=== PATIENT | female | born 1935 | race Two or more races ===

== ENCOUNTER 2016-09-01 20:51 | Emergency (ER) | payer OTHER, MEDICAID ==
--- NOTE | 2016-09-01 23:00 | EDPHY ---
H & P Time Seen by Provider: 09/01/16 21:16 HPI/ROS: CHIEF COMPLAINT: Right foot pain HISTORY OF PRESENT ILLNESS: 81-year-old female presents emergency department complaining of right foot pain x2 weeks. Patient reports the bottom of her right foot hurts with palpation and ambulation and weight-bearing. Patient denies stepping on anything. She denies history of diabetes. No numbness or tingling in her foot. No fevers or chills. Patient was seen at her primary care doctor's office yesterday and was told this was a callus. Patient would like 2nd opinion. Smoking Status: Never smoked Physical Exam: GEN: Awake, alert, oriented, no acute distress RESP: nl resp effort MSK: Normal range of motion of right foot, 2+ pedal pulses, sensation intact to light touch SKIN: Plantar aspect of right foot on pad of foot just proximal to MTP joint with 1 cm x 1 cm callus with black center, no surrounding erythema, no drainage , no fluctuance or induration. Tender to palpation Constitutional: Initial Vital Signs Temperature (C) 36.5 C 09/01/16 20:53 Heart Rate 72 09/01/16 20:53 Respiratory Rate 18 09/01/16 20:53 Blood Pressure 163/82 H 09/01/16 20:53 O2 Sat (%) 93 09/01/16 20:53 O2 Delivery Mode Room Air Allergies/Adverse Reactions: morphine [Morphine] Allergy (Severe, Verified 05/09/14 23:23) Anaphylaxis Home Medications: Medication Instructions Recorded Alendronate Sodium [Fosamax 70 MG 70 mg PO AVENDAÑO@0700 06/27/12 (*)] Citalopram [celeXA 20 MG (RX)] 20 mg PO DAILY 06/27/12 Tolterodine Tartrate [Detrol LA 2 mg PO DAILY 06/27/12 2MG (*)] risperiDONE [Risperdal 0.25mg (*)] 0.5 mg PO BID 06/27/12 Atorvastatin Calcium [Lipitor 80 80 mg PO DAILY 02/03/13 mg] Lidocaine 5% [Lidoderm 5% Patch 1 ea TD DAILY 02/03/13 (*)] Metoprolol Succinate Xr [Toprol Xl 12.5 mg PO BID 02/03/13 25 mg (*)] Ondansetron Odt [Zofran Odt 4 mg 4 mg PO Q8 PRN 02/03/13 (*)] Pantoprazole Sodium [Protonix 40mg 40 mg PO DAILY 02/03/13 (*)] Loratadine [Claritin 10 mg] 10 mg PO DAILY 05/11/13 Metaxalone [Skelaxin 800 mg (*)] 800 mg PO TID PRN 05/11/13 Nitroglycerin [Nitrostat] 0.3 mg SL PRN PRN 05/11/13 Hydrocodone/APAP 5/325 [[place] 1 - 2 tab PO Q6 PRN 05/09/14 5/325 (*)] Aspirin [Aspirin 325 mg (OTC)] 325 mg PO DAILY #30 tab 06/07/14 MDM/Departure - MDM Imaging Results: Imaging Impressions Foot X-Ray 09/01/16 22:26 Impression: Negative for acute osseous abnormality or radiopaque foreign body. Imaging: I viewed and interpreted images myself ED Course/Re-evaluation: X-ray obtained showing no foreign body. Patient has a likely pannus work. She has been given a postop shoe for heel weight-bearing. Patient has been given a rubber process hand to follow up with. She is given return precautions for any new symptoms or concerns. - Depart Disposition: Home, Routine, Self-Care Clinical Impression: Plantar wart, right foot Condition: Good Instructions: Plantar Wart (ED) Additional Instructions: Follow up with the rubber process hand. Wear post op shoe and walk on heel as needed for pain. Call Sunday morning to schedule this appointment. Referrals: Jazzmine Patiño DPM [Doctor of Podiatric Medicine] - As per Instructions (rubber process hand sap solutions architect ) Print Language: Turkish
[2016-09-01 23:31] VITALS: BP 178/87; PULSE 75; RESP 20; TEMP 97.5; O2SAT 94
== END 2016-09-01 23:31 | disposition home or self-care (01) ==
DX: B07.0 Plantar wart (principal); Z79.82 Long term (current) use of aspirin
CPT/HCPCS: 73620; L3260

== ENCOUNTER → 2016-09-05 | Outpatient (CLI) | payer OTHER, MEDICAID | LOC: BMCIMAGING 09:35 | PROVIDERS: ATTEND Podiatrist Foot & Ankle Surgery | DX: M20.11 Hallux valgus (acquired), right foot (principal); M19.071 Primary osteoarthritis, right ankle and foot ==

== ENCOUNTER → 2016-12-01 | Outpatient (CLI) | payer OTHER, MEDICAID | LOC: BHFA 09:15 | PROVIDERS: ATTEND Internal Medicine Cardiovascular Disease | DX: I35.1 Nonrheumatic aortic (valve) insufficiency (principal); I10 Essential (primary) hypertension; I63.9 Cerebral infarction, unspecified; E78.5 Hyperlipidemia, unspecified; Z95.0 Presence of cardiac pacemaker ==

== ENCOUNTER 2016-12-08 17:05 | Emergency (ER) | payer OTHER, MEDICAID ==
[2016-12-08 17:15] VITALS: BP 170/89; PULSE 76; RESP 16; TEMP 98.4; O2SAT 93
--- NOTE | 2016-12-08 17:20 | CPEKG ---
Heart Rate: 67 RR Interval: 896 P-R Interval: 176 QRSD Interval: 108 QT Interval: 432 QTC Interval: 456 P Quinn: -44 QRS Quinn: -14 T Wave Quinn: 95 EKG Severity - ABNORMAL ECG - EKG Impression: ATRIAL-PACED COMPLEXES EKG Impression: INCOMPLETE RIGHT BUNDLE BRANCH BLOCK EKG Impression: CONSIDER ANTERIOR INFARCT Electronically Signed By: Nata Heredia 08-Dec-2016 23:17:36
--- NOTE | 2016-12-08 17:21 | EDPHY ---
H & P Stated Complaint: abd pain mid epigastric pain - Personal History Current Tetanus/Diphtheria Vaccine: Yes Current Tetanus Diphtheria and Acellular Pertussis (TDAP): Yes Tetanus Vaccine Date: 2010 - Medical/Surgical History Hx Asthma: No Hx Chronic Respiratory Disease: No Hx Diabetes: No Hx Cardiac Disease: Yes Hx Renal Disease: No Hx Cirrhosis: No Hx Alcoholism: No Hx HIV/AIDS: No Hx Splenectomy or Spleen Trauma: No Other PMH: medical- Pacemaker, HTN, CVA, pylonephritis, hyperlipidemia, [place], GERD, depression, BTKAs, L TSA, lap damien. surgical- B knee replacement, damien , R shoulder - Social History Smoking Status: Never smoked Time Seen by Provider: 12/08/16 17:08 HPI/ROS: CHIEF COMPLAINT: Epigastric pain HISTORY OF PRESENT ILLNESS: 81-year-old female medical history significant for chronic vertigo, cholecystectomy, sick sinus syndrome, pacemaker, arrives by ambulance with family member complaining of nonradiating epigastric pain, nausea started at 2:30 p.m., shortly after ingesting oral opiate as she had right bunionectomy earlier today. She was given fentanyl via EMS and notes improvement in symptoms. She denies: Vomiting, headache, chest pain, dyspnea, recent illness. PRIMARY CARE PROVIDER: the [facility] REVIEW OF SYSTEMS: A ten point review of systems was performed and is negative with the exception of the items mentioned in the HPI PAST MEDICAL & SURGICAL HISTORY: Cholecystectomy. Fatty liver. Lacunar infarct. Sick sinus syndrome. Pacemaker. Hyperlipidemia. Chronic vertigo SOCIAL HISTORY: nonsmoker. No drug use. No alcohol use. PHYSICAL EXAM (Prior to examination, patient consented to physical exam, hands were washed and my usual and customary physical exam procedures followed) 1) GENERAL: Well-developed, well-nourished, alert and oriented. Appears anxious. 2) HEAD: Normocephalic, atraumatic 3) HEENT: Pupils equal, round, reactive to light bilaterally. Sclera anicteric. 4) NECK: Full range of motion, no meningeal signs. 5) LUNGS: Clear auscultation bilaterally, no wheezes, no rhonchi, no retractions. 6) HEART: Regular rate and rhythm, no murmur, no heave, no gallop. 7) ABDOMEN: No guarding, tender to palpation epigastrium with no palpable or pulsatile mass, negative McBurney's, negative Vicente's, negative Rovsing's, negative peritoneal sign, negative Vicente's 8) MUSCULOSKELETAL: bilateral lower extremities have normal coloration, no mottling, symmetrical pulses. Moving all extremities, no focal areas of tenderness, no obvious trauma. No peripheral edema or discoloration. 9) BACK: No CVA tenderness, no midline vertebral tenderness, no fluctuance, no step-off, no obvious trauma, no visual or palpable abnormality. 10) SKIN: No rash, no petechiae. 11) Psychiatric: Patient is oriented X 3, there is no agitation. DIFFERENTIAL DIAGNOSIS: In no particular order, including but not limited to biliary colic, cholecystitis, peptic ulcer disease, pancreatitis, and gastroenteritis. This is a partial list of diagnoses considered. These considerations are based on history, physical exam, past history and reassessment. (Martin Peñaloza) Constitutional: Initial Vital Signs Temperature (C) 36.9 C 12/08/16 17:13 Heart Rate 76 12/08/16 17:13 Respiratory Rate 16 12/08/16 17:13 Blood Pressure 170/89 H 12/08/16 17:13 O2 Sat (%) 93 12/08/16 17:13 O2 Delivery Mode Nasal Cannula Allergies/Adverse Reactions: morphine [Morphine] Allergy (Severe, Verified 05/09/14 23:23) Anaphylaxis Home Medications: Medication Instructions Recorded Alendronate Sodium [Fosamax 70 MG 70 mg PO AVENDAÑO@0700 06/27/12 (*)] Citalopram [celeXA 20 MG (RX)] 20 mg PO DAILY 06/27/12 Tolterodine Tartrate [Detrol LA 2 mg PO DAILY 06/27/12 2MG (*)] risperiDONE [Risperdal 0.25mg (*)] 0.5 mg PO BID 06/27/12 Atorvastatin Calcium [Lipitor 80 80 mg PO DAILY 02/03/13 mg] Lidocaine 5% [Lidoderm 5% Patch 1 ea TD DAILY 02/03/13 (*)] Metoprolol Succinate Xr [Toprol Xl 12.5 mg PO BID 02/03/13 25 mg (*)] Ondansetron Odt [Zofran Odt 4 mg 4 mg PO Q8 PRN 02/03/13 (*)] Pantoprazole Sodium [Protonix 40mg 40 mg PO DAILY 02/03/13 (*)] Loratadine [Claritin 10 mg] 10 mg PO DAILY 05/11/13 Metaxalone [Skelaxin 800 mg (*)] 800 mg PO TID PRN 05/11/13 Nitroglycerin [Nitrostat] 0.3 mg SL PRN PRN 05/11/13 Hydrocodone/APAP 5/325 [[place] 1 - 2 tab PO Q6 PRN 05/09/14 5/325 (*)] Aspirin [Aspirin 325 mg (OTC)] 325 mg PO DAILY #30 tab 06/07/14 Promethazine HCl [Phenergan] 25 mg PO Q6 #7 tab 12/08/16 Medical Decision Making - Diagnostics Imaging Results: Imaging Impressions Chest X-Ray 12/08/16 17:17 Impression: Nothing acute identified. Images reviewed myself (Martin Peñaloza) ED Course/Re-evaluation: 5:40 p.m.: This patient was seen and examined by me. She had a right bunionectomy this morning and returned home at 1:30 p.m.. Since surgery, she has had dizziness and a headache. She presents with epigastric pain immediately after taking oxycodone at 2:30 p.m.. She has a history of gastritis and this is similar. The pain is now resolved. Abdomen is soft, mild epigastric tenderness. (Nata Heredia) 5:20 p.m.: Old medical records reviewed, discussed case with Dr. Heredia in the ER. Reviewed the patient's fold imaging including a CT abdomen pelvis in 2013 showing no aortic aneurysm. 6:58 p.m.: Re-evaluation, she is resting comfortably, patient has been seen exam by Dr. Nata Heredia. Discussed with the patient and her family the more than likely etiology of her symptoms secondary to opiate ingestion .. Emergency department her abdomen remained soft no guarding no rebound and most recent exam at this time she is nontender with no pulsatile mass. She is asymptomatic at this time. She would like to be discharged. I offered admission which she declines. She feels comfortable being discharged. She has been prescribed antiemetic and recommend she consume her opiate analgesic with food. Definitely should she develop return of symptoms to return immediately for re-evaluation. Patient and daughter feel comfortable being discharged and request discharge. (Martin Peñaloza) - Data Points Laboratory Results: Laboratory Results 12/08/16 17:10 12/08/16 17:10 12/08/16 12/08/16 12/08/16 17:10 17:10 17:10 WBC 6.86 10^3/uL 10^3/uL (3.80-9.50) RBC 4.79 10^6/uL 10^6/uL (4.18-5.33) Hgb 15.0 g/dL g/dL (12.6-16.3) Hct 45.5 % % (38.0-47.0) MCV 95.0 fL fL (81.5-99.8) MCH 31.3 pg pg (27.9-34.1) MCHC 33.0 g/dL g/dL (32.4-36.7) RDW 13.6 % % (11.5-15.2) Plt Count 150 10^3/uL 10^3/uL (150-400) MPV 12.2 fL H fL (8.7-11.7) Neut % (Auto) 84.8 % H % (39.3-74.2) Lymph % (Auto) 13.7 % L % (15.0-45.0) [place] % (Auto) 0.9 % L % (4.5-13.0) Eos % (Auto) 0.1 % L % (0.6-7.6) Baso % (Auto) 0.1 % L % (0.3-1.7) Nucleat RBC Rel Count 0.0 % % (0.0-0.2) Absolute Neuts (auto) 5.81 10^3/uL 10^3/uL (1.70-6.50) Absolute Lymphs (auto) 0.94 10^3/uL L 10^3/uL (1.00-3.00) Absolute Monos (auto) 0.06 10^3/uL L 10^3/uL (0.30-0.80) Absolute Eos (auto) 0.01 10^3/uL L 10^3/uL (0.03-0.40) Absolute Basos (auto) 0.01 10^3/uL L 10^3/uL (0.02-0.10) Absolute Nucleated RBC 0.00 10^3/uL 10^3/uL (0-0.01) Immature Gran % 0.4 % % (0.0-1.1) Immature Gran # 0.03 10^3/uL 10^3/uL (0.00-0.10) PT 13.6 SEC SEC (12.0-15.0) INR 1.05 (0.83-1.16) APTT 30.9 SEC SEC (23.0-38.0) Sodium 140 mEq/L mEq/L (134-144) Potassium 3.7 mEq/L mEq/L (3.5-5.2) Chloride 101 mEq/L mEq/L (97-110) Carbon Dioxide 26 mEq/l mEq/l (22-31) Anion Gap 13 mEq/L mEq/L (8-16) BUN 8 mg/dL mg/dL (7-23) Creatinine 0.6 mg/dL mg/dL (0.6-1.0) Estimated GFR > 60 Glucose 164 mg/dL H mg/dL (70-100) Calcium 9.2 mg/dL mg/dL (8.5-10.4) Total Bilirubin 0.6 mg/dL mg/dL (0.1-1.4) Conjugated Bilirubin 0.3 mg/dL mg/dL (0.0-0.5) Unconjugated Bilirubin 0.3 mg/dL mg/dL (0.0-1.1) AST 45 IU/L IU/L (14-46) ALT 48 IU/L IU/L (9-52) Alkaline Phosphatase 90 IU/L IU/L (38-126) Troponin I < 0.012 ng/mL ng/mL (0.000-0.034) Total Protein 7.5 g/dL g/dL (6.3-8.2) Albumin 3.9 g/dL g/dL (3.5-5.0) Lipase 84 IU/L IU/L (23-300) Medications Given: Discontinued Medications Al Hydroxide/Mg Hydroxide (Maalox Susp) 30 ml PO ONCE ONE Stop: 12/08/16 17:33 Last Admin: 12/08/16 18:26 Dose: 30 ml Hyoscyamine Sulfate (Levsin, Hyomax-Sl) 0.25 mg PO ONCE ONE Stop: 12/08/16 17:33 Last Admin: 12/08/16 18:26 Dose: 0.25 mg Lidocaine (Lidocaine 2% Viscous) 15 ml PO ONCE ONE Stop: 12/08/16 17:33 Last Admin: 12/08/16 18:26 Dose: 15 ml Departure - Departure Disposition: Home, Routine, Self-Care Clinical Impression: Epigastric abdominal pain Condition: Good Instructions: Epigastric Pain (ED) Additional Instructions: Return to the emergency department immediately if you develop further abdominal pain, if you develop chest pain, shortness of breath, back pain, vomiting or any other symptoms that concern you. Recommend you take your pain medication with a full stomach of food. I am also prescribing you nausea medication she you develop nausea. Recommend you increase your fluid and fiber intake as opiate pain medications can cause constipation. Referrals: Jazzmine Patiño DPM [Doctor of Podiatric Medicine] - 12/11/16 Prescriptions: Promethazine HCl [Phenergan] 25 mg PO Q6 #7 tab
[2016-12-08 17:32] LABS: % IMMATURE GRANULYOCYTES 0.4 % (0.0-1.1); ABSOLUTE IMMATURE GRANULOCYTES 0.03 10^3/uL (0.00-0.10); ADD DIFF? NO; ADD MORPH? NO; ADD SCAN? NO; ATYPICAL LYMPHOCYTE FLAG 0 (0-99); FRAGMENT RBC FLAG 0 (0-99); HEMATOCRIT 45.5 % (38.0-47.0); LEFT SHIFT FLG 0 (0-99); LIPEMIA HEMOLYSIS FLAG 80 (0-99); MEAN CELL HEMOGLOBIN 31.3 pg (27.9-34.1); MEAN PLATELET VOLUME 12.2 fL (8.7-11.7); PLATELET CLUMPS FLAG 0 (0-99); PLATELET COUNT 150 10^3/uL (150-400); RED BLOOD CELL COUNT 4.79 10^6/uL (4.18-5.33); RED CELL DISTRIBUTION WIDTH 13.6 % (11.5-15.2)
[2016-12-08] MEDS ORDERED: HYOSCYAMINE SULFATE 0.125 MG TAB PO ONE (17:32)
[2016-12-08] MEDS ORDERED: MAG HYDROX/AL HYDROX/SIMETH 30 ML UDCUP PO ONE (17:32)
[2016-12-08] MEDS ORDERED: LIDOCAINE 2% VISCOUS 15 ML UDCUP PO ONE (17:32)
[2016-12-08 17:36] LABS: APTT 30.9 SEC (23.0-38.0); INR 1.05 (0.83-1.16); PROTIME(PATIENT) 13.6 SEC (12.0-15.0)
[2016-12-08 17:38] LABS: ALANINE AMINOTRANSFERASE 48 IU/L (9-52); ALBUMIN 3.9 g/dL (3.5-5.0); ALKALINE PHOSPHATASE 90 IU/L (38-126); ANION GAP 13 mEq/L (8-16); ASPARTATE AMINOTRANSFERASE 45 IU/L (14-46); BILIRUBIN,TOTAL 0.6 mg/dL (0.1-1.4); BILIRUBIN-CONJUGATED 0.3 mg/dL (0.0-0.5); BILIRUBIN-UNCONJUGATED 0.3 mg/dL (0.0-1.1); CALCIUM 9.2 mg/dL (8.5-10.4); CARBON DIOXIDE 26 mEq/l (22-31); CHLORIDE 101 mEq/L (97-110); CREATININE 0.6 mg/dL (0.6-1.0); GLOMERULAR FILTRATION RATE > 60; GLUCOSE 164 mg/dL (70-100); POTASSIUM 3.7 mEq/L (3.5-5.2); SODIUM 140 mEq/L (134-144); TOTAL PROTEIN 7.5 g/dL (6.3-8.2)
[2016-12-08 17:49] LABS: TROPONIN I < 0.012 ng/mL (0.000-0.034)
== END 2016-12-08 19:29 | disposition home or self-care (01) ==
LOC: EDUNIT#
DX: R10.13 Epigastric pain (principal); I10 Essential (primary) hypertension; I25.2 Old myocardial infarction; Z79.82 Long term (current) use of aspirin; Z86.73 Personal history of transient ischemic attack (TIA), and cerebral infarction without residual deficits; Z95.0 Presence of cardiac pacemaker

== ENCOUNTER → 2016-12-12 | Outpatient (CLI) | payer OTHER, MEDICAID | LOC: BMCIMAGING 10:15 | PROVIDERS: ATTEND Podiatrist Foot & Ankle Surgery | DX: Z09 Encounter for follow-up examination after completed treatment for conditions other than malignant neoplasm (principal); Z98.890 Other specified postprocedural states ==

== ENCOUNTER 2017-01-13 15:17 | Emergency (ER) | payer OTHER, MEDICAID ==
[2017-01-13 15:28] VITALS: RESP 18
[2017-01-13] MEDS ORDERED: IBUPROFEN 600 MG TAB PO ONE (16:43)
--- NOTE | 2017-01-13 17:09 | EDPHY ---
H & P Stated Complaint: right foot pain, sx approx 1 month ago Time Seen by Provider: 01/13/17 15:46 HPI/ROS: CHIEF COMPLAINT: Right foot pain HISTORY OF PRESENT ILLNESS: The patient presents to the ED with a several day history of right foot pain. She has approximately 1 month status post bunionectomy. Patient had been in a walking boot up until a week ago. She saw her wash oil pump operator helper who removed her splint. The patient reports over the past several days she has developed some very mild erythema and pain in the area for surgery. She denies history of fall or trauma. She has been taking Tylenol at home for management of her pain. The patient has been using antibiotic ointment. She denies fever or additional acute complaints. REVIEW OF SYSTEMS: A comprehensive 10 point review of systems is otherwise negative aside from elements mentioned in the history of present illness. Source: Patient - Personal History Current Tetanus/Diphtheria Vaccine: Yes Current Tetanus Diphtheria and Acellular Pertussis (TDAP): Yes Tetanus Vaccine Date: 2010 - Medical/Surgical History Hx Asthma: No Hx Chronic Respiratory Disease: No Hx Diabetes: No Hx Cardiac Disease: Yes Hx Renal Disease: No Hx Cirrhosis: No Hx Alcoholism: No Hx HIV/AIDS: No Hx Splenectomy or Spleen Trauma: No Other PMH: medical- Pacemaker, HTN, CVA, pylonephritis, hyperlipidemia, CT, GERD, depression, BTKAs, L TSA, lap damien. surgical- B knee replacement, damien , R shoulder - Social History Smoking Status: Never smoked - Physical Exam Exam: General Appearance: Alert, no distress Eyes: Pupils equal and round no pallor or injection ENT, Mouth: Mucous membranes moist Respiratory: There are no retractions, lungs are clear to auscultation Cardiovascular: Regular rate and rhythm Gastrointestinal: Abdomen is soft and nontender, no masses, bowel sounds normal Neurological: A&O, normal motor function, normal sensory exam, normal cranial nerves Skin: Minimal erythema over prior surgical incision less than 1 cm in thickness , no fluctuance Musculoskeletal: Tenderness to palpation noted along the lateral aspect of the right foot and surgical incision, tenderness to palpation dorsum of the right foot Extremities: symmetrical, full range of motion Constitutional: Initial Vital Signs Temperature (C) 36.6 C 01/13/17 15:25 Heart Rate 79 01/13/17 15:25 Respiratory Rate 18 01/13/17 15:25 Blood Pressure 136/66 H 01/13/17 15:25 O2 Sat (%) 92 01/13/17 15:25 O2 Delivery Mode Room Air Allergies/Adverse Reactions: morphine [Morphine] Allergy (Severe, Verified 01/13/17 15:24) Anaphylaxis Home Medications: Medication Instructions Recorded Alendronate Sodium [Fosamax 70 MG 70 mg PO AVENDAÑO@0700 06/27/12 (*)] Citalopram [celeXA 20 MG (RX)] 20 mg PO DAILY 06/27/12 Tolterodine Tartrate [Detrol LA 2 mg PO DAILY 06/27/12 2MG (*)] risperiDONE [Risperdal 0.25mg (*)] 0.5 mg PO BID 06/27/12 Atorvastatin Calcium [Lipitor 80 80 mg PO DAILY 02/03/13 mg] Lidocaine 5% [Lidoderm 5% Patch 1 ea TD DAILY 02/03/13 (*)] Metoprolol Succinate Xr [Toprol Xl 12.5 mg PO BID 02/03/13 25 mg (*)] Ondansetron Odt [Zofran Odt 4 mg 4 mg PO Q8 PRN 02/03/13 (*)] Pantoprazole Sodium [Protonix 40mg 40 mg PO DAILY 02/03/13 (*)] Loratadine [Claritin 10 mg] 10 mg PO DAILY 05/11/13 Metaxalone [Skelaxin 800 mg (*)] 800 mg PO TID PRN 05/11/13 Nitroglycerin [Nitrostat] 0.3 mg SL PRN PRN 05/11/13 Hydrocodone/APAP 5/325 [[place] 1 - 2 tab PO Q6 PRN 05/09/14 5/325 (*)] Aspirin [Aspirin 325 mg (OTC)] 325 mg PO DAILY #30 tab 06/07/14 Promethazine HCl [Phenergan] 25 mg PO Q6 #7 tab 12/08/16 Cephalexin [Keflex] 500 mg PO TID #21 cap 01/13/17 Hydrocodone/APAP 5/325 [[place] 1 each PO Q6 PRN #20 tab 01/13/17 5/325] Medical Decision Making - Diagnostics Imaging Results: Right foot x-ray: Images reviewed by myself, negative for hardware failure, gas or acute fracture. ED Course/Re-evaluation: The patient was evaluated with the electrolysis operator. There is evidence of only mild erythema on exam. She will be started on Keflex. She is given a prescription for pain medications. She is advised to follow up with her regular wash oil pump operator helper on Sunday for recheck. She should return to the ED this weekend for the development of markedly worsening redness, pain, fever or swelling. Differential Diagnosis: Differential diagnosis considered includes infection, fracture, gout, cellulitis , abscess - Data Points Medications Given: Discontinued Medications Ibuprofen (Motrin) 600 mg PO EDNOW ONE Stop: 01/13/17 16:44 Last Admin: 01/13/17 16:57 Dose: 600 mg Departure - Departure Disposition: Home, Routine, Self-Care Clinical Impression: Right foot pain Condition: Good Instructions: Musculoskeletal Pain (ED) Additional Instructions: 1. Continue Tylenol and ibuprofen as needed for pain. You have been given a prescription for Vicodin for severe pain. Please do not take more than eight Tylenol or Vicodin tablets in a day as Vicodin does also contain Tylenol. 2. Take Keflex as prescribed for a possible mild early skin infection. 3. Please return to the ED this weekend for any severe pain, markedly worsening redness, swelling or other concerns. 4. Please follow up with your regular wash oil pump operator helper and primary care provider for a recheck on Sunday of next week. Referrals: Clover Castellon MD [Primary Care Provider] - As per Instructions
[2017-01-13 17:29] VITALS: BP 170/86; PULSE 67; TEMP 97.7; O2SAT 94
== END 2017-01-13 17:45 | disposition home or self-care (01) ==
DX: M79.671 Pain in right foot (principal); I10 Essential (primary) hypertension; I25.2 Old myocardial infarction; Z95.0 Presence of cardiac pacemaker; Z86.73 Personal history of transient ischemic attack (TIA), and cerebral infarction without residual deficits; Z79.82 Long term (current) use of aspirin

== ENCOUNTER → 2017-04-17 | Outpatient (CLI) | payer OTHER, MEDICAID | LOC: FIMAGING 10:41 | PROVIDERS: ATTEND Family Medicine | DX: Z12.31 Encounter for screening mammogram for malignant neoplasm of breast (principal) ==

== ENCOUNTER 2017-10-08 15:44 | Emergency (ER) | payer OTHER, MEDICAID ==
--- NOTE | 2017-10-08 16:50 | EDPHY ---
H & P Stated Complaint: watery diarrhea today, hurt all over, vomited, near syncope, dry mouth Time Seen by Provider: 10/08/17 16:50 HPI/ROS: CHIEF COMPLAINT: Diarrhea HISTORY OF PRESENT ILLNESS: This is an 82-year-old female with a history of hypertension, GERD, coronary artery disease, pacemaker, and CVA. She presents with diarrhea that began earlier this morning. She has had profuse watery diarrhea throughout the day. 3 hr ago she had an episode where she began to feel as if she might faint. She leaned up against the wall and slowly slid to the ground. She did not lose consciousness. She did not injure herself. She vomited shortly after that episode. She reports diffuse achiness in her bones and extreme fatigue today. Subjective fever. While undergoing triage in the emergency department she developed vertigo, which has been a problem for her in the past. She denies abdominal pain. She has not had dysuria. She is not experiencing chest pain and does not feel short of breath. REVIEW OF SYSTEMS: A ten point review of systems was performed and is negative with the exception of the items mentioned in the HPI. Past medical history: 1. HTN 2. CVA 3. CAD/OH 4. GERD 5. Hyperlipidemia 6. depression Past surgical history: 1. Pacemaker 2. Cholecystectomy 3. Bilateral knee replacements 4. Right shoulder surgery Social history: Lives with family. No tobacco or alcohol use. General Appearance: Alert. Vital signs reviewed. BP 165/95. Afebrile. Eyes: Pupils equal and round, no conjunctival injection, no discharge. Anicteric. ENT, Mouth: Mucous membranes are moist, no oropharyngeal erythema or edema. Neck: No lymphadenopathy, supple. Respiratory: Lungs are clear to auscultation; no wheezes, rales, or rhonchi. Cardiovascular: Regular rate and rhythm; no murmur, rub, or gallop. Gastrointestinal: Abdomen is soft and nontender, no masses or organomegaly, bowel sounds normal. Skin: Warm and dry, no rashes on exposed skin, normal color. Back: Nontender to palpation over the thoracolumbar spine. No CVAT. Extremities: No lower extremity edema, no calf tenderness or swelling. Neurological: Alert and oriented. Moving all four extremities easily and equally. Psychiatric: Normal affect. - Personal History Current Tetanus/Diphtheria Vaccine: Yes Current Tetanus Diphtheria and Acellular Pertussis (TDAP): Yes Tetanus Vaccine Date: 2010 - Medical/Surgical History Hx Asthma: No Hx Chronic Respiratory Disease: No Hx Diabetes: No Hx Cardiac Disease: Yes Hx Renal Disease: No Hx Cirrhosis: No Hx Alcoholism: No Hx HIV/AIDS: No Hx Splenectomy or Spleen Trauma: No Other PMH: medical- Pacemaker, HTN, CVA, pylonephritis, hyperlipidemia, [place], GERD, depression, BTKAs, L TSA, lap damien. surgical- B knee replacement, damien , R shoulder - Social History Smoking Status: Never smoked Constitutional: Initial Vital Signs Temperature (C) 36.6 C 10/08/17 15:56 Heart Rate 88 10/08/17 15:56 Respiratory Rate 16 10/08/17 15:56 Blood Pressure 169/95 H 10/08/17 15:56 O2 Sat (%) 90 L 10/08/17 15:56 O2 Delivery Mode Room Air Allergies/Adverse Reactions: morphine [Morphine] Allergy (Severe, Verified 10/08/17 15:56) Anaphylaxis Home Medications: Medication Instructions Recorded Alendronate Sodium [Fosamax 70 MG 70 mg PO AVENDAÑO@0700 06/27/12 (*)] Citalopram [celeXA 20 MG (RX)] 20 mg PO DAILY 06/27/12 Tolterodine Tartrate [Detrol LA 2 mg PO DAILY 06/27/12 2MG (*)] risperiDONE [Risperdal 0.25mg (*)] 0.5 mg PO BID 06/27/12 Atorvastatin Calcium [Lipitor 80 80 mg PO DAILY 02/03/13 mg] Lidocaine 5% [Lidoderm 5% Patch] 1 ea TD DAILY 02/03/13 Metoprolol Succinate Xr [Toprol Xl 12.5 mg PO BID 02/03/13 25 mg (*)] Ondansetron Odt [Zofran Odt 4 mg 4 mg PO Q8 PRN 02/03/13 (*)] Pantoprazole Sodium [Protonix 40mg 40 mg PO DAILY 02/03/13 (*)] Loratadine [Claritin 10 mg] 10 mg PO DAILY 05/11/13 Metaxalone [Skelaxin 800 mg (*)] 800 mg PO TID PRN 05/11/13 Nitroglycerin [Nitrostat] 0.3 mg SL PRN PRN 05/11/13 Hydrocodone/APAP 5/325 [[place] 1 - 2 tab PO Q6 PRN 05/09/14 5/325 (*)] Aspirin [Aspirin 325 mg (OTC)] 325 mg PO DAILY #30 tab 06/07/14 Promethazine HCl [Phenergan] 25 mg PO Q6 #7 tab 12/08/16 Cephalexin [Keflex] 500 mg PO TID #21 cap 01/13/17 Hydrocodone/APAP 5/325 [[place] 1 each PO Q6 PRN #20 tab 01/13/17 5/325] Medical Decision Making ED Course/Re-evaluation: Patient given Valium for treatment of vertigo, which she has experienced before. She presented with diarrhea. She was serially evaluated while in the department and did not have any diarrheal stool. She was able to tolerate p.o.. Repeat abdominal exams remained unchanged--her abdomen was soft and nontender. She remained afebrile. At 8:00 p.m. she complained of headache and Tylenol was ordered. She does not have a stiff neck. She felt well enough to return home. She was rehydrated with one liter NS IV. I feel that she can safely return home. She likely had a viral diarrheal illness. Differential Diagnosis: I considered a ddx that includes but is not limited to viral/bacterial/ protozoal diarrhea, gastroenteritis, UTI. I do not suspect malabsorption. - Data Points Laboratory Results: Laboratory Results 10/08/17 17:36 10/08/17 17:36 Medications Given: Discontinued Medications Acetaminophen (Tylenol) 650 mg PO EDNOW ONE Stop: 10/08/17 20:17 Last Admin: 10/08/17 20:36 Dose: 650 mg Diazepam (Valium) 2.5 mg IVP EDNOW ONE Stop: 10/08/17 17:29 Last Admin: 10/08/17 17:45 Dose: 2.5 mg Sodium Chloride (Ns) 1,000 mls @ 0 mls/hr IV EDNOW ONE; Wide Open PRN Reason: Protocol Stop: 10/08/17 17:26 Last Admin: 10/08/17 17:45 Dose: 1,000 mls Ondansetron HCl (Zofran) 4 mg IVP EDNOW ONE Stop: 10/08/17 17:26 Last Admin: 10/08/17 17:45 Dose: 4 mg Departure - Departure Disposition: Home, Routine, Self-Care Clinical Impression: Diarrhea Qualifiers: Diarrhea type: unspecified type Qualified Code(s): R19.7 - Diarrhea, unspecified Condition: Good Instructions: Acute Diarrhea (ED) Additional Instructions: If you have more diarrhea, vomiting, feel faint, or have abdominal pain--you should be re-evaluated. It is fine to take tylenol, 650 mg, for headache or other pain. Si tiene mas diarrea, vomito, siente debilidad, o si tiene dolor abdominal, debe ser evaluada de nuevo. Esta josué oscar tylonol (650 mg) en casa para el dolor de deep u otros patricia. Referrals: Clover Castellon MD [Primary Care Provider] - As per Instructions
[2017-10-08] MEDS ORDERED: NS 1,000 ML IV ONE (17:25)
[2017-10-08] MEDS ORDERED: ONDANSETRON 4 MG/2 ML VIAL IVP ONE (17:25)
[2017-10-08] MEDS ORDERED: DIAZEPAM 5 MG/ML 1 ML SYR IVP ONE (17:28)
[2017-10-08 17:49] LABS: PLATELET COUNT 166 10^3/uL (150-400)
[2017-10-08] MEDS ORDERED: ACETAMINOPHEN 325 MG TAB PO ONE (20:16)
[2017-10-08 21:26] VITALS: BP 144/86
== END 2017-10-08 21:25 | disposition home or self-care (01) ==
DX: R19.7 Diarrhea, unspecified (principal); E86.9 Volume depletion, unspecified; I25.10 Atherosclerotic heart disease of native coronary artery without angina pectoris; I10 Essential (primary) hypertension; I25.2 Old myocardial infarction; Z79.82 Long term (current) use of aspirin; Z86.73 Personal history of transient ischemic attack (TIA), and cerebral infarction without residual deficits; Z95.0 Presence of cardiac pacemaker
CPT/HCPCS: 96361; 96374; 96375; 99284; J2405; J3360

== ENCOUNTER 2018-03-31 19:39 | Observation (INO) | payer OTHER, MEDICAID ==
--- NOTE | 2018-03-31 20:23 | EDPHY ---
H & P Stated Complaint: fall 2 weeks ago and now having shoulder and back pain and URI Source: Patient, Audit Lead Exam Limitations: Language barrier ([place]) - Personal History Current Tetanus/Diphtheria Vaccine: Yes Current Tetanus Diphtheria and Acellular Pertussis (TDAP): Yes Tetanus Vaccine Date: 2010 - Medical/Surgical History Hx Asthma: No Hx Chronic Respiratory Disease: No Hx Diabetes: No Hx Cardiac Disease: Yes Hx Renal Disease: No Hx Cirrhosis: No Hx Alcoholism: No Hx HIV/AIDS: No Hx Splenectomy or Spleen Trauma: No Other PMH: medical- Pacemaker, HTN, CVA, pylonephritis, hyperlipidemia, [place], GERD, depression, BTKAs, L TSA, lap damien. surgical- B knee replacement, damien , R shoulder - Social History Smoking Status: Never smoked Time Seen by Provider: 03/31/18 20:22 HPI/ROS: HPI: This is a 83-year-old female who presents with Chief Complaint: fall 2 weeks ago and now having shoulder and back pain and URI Location: Lower back, chest Quality: Injury, cough Duration: 2 weeks Signs and Symptoms: No bleeding, no radiation, no numbness, no weakness, no tingling, no incontinence, + decreased range of motion, no swelling, + pain, no fever Timing: Acute, worsening Severity: Moderate Context: Patient has a history of hypertension, vertigo presents with getting up out of bed and getting dizzy with the room spinning which is not atypical for but she fell backwards 1st on her buttocks and then onto her back and head. This was an unwitnessed fall. Daughter was in the restroom at the time. Patient unable to tell me if she lost consciousness or not. Daughter reports that she has a history of vertigo and frequent dizziness and uses cane to aid ambulation. Takes baby aspirin daily. Daughter reports that she had a hematoma on the back of her scalp but that has slowly resolved. Since the time of her fall she has complained of lower buttock pain that is nonradiating in nature. She has no change in bowel or bladder habits. She does suffer from urinary incontinence at baseline. Denies LOC/neck pain/nausea/vomiting/amnesia. Over the last 1 week she has developed a productive cough associated with fatigue and body aches. For further questioning patient complains of right wrist discomfort since her fall. She is right-hand dominant. Patient also counselors that at the base of her right thumb there is a skin color change that she is concerned may be cancerous as her brother had a similar spot on his face that had to be removed because it was cancer. Modifying Factors: None Comment: ROS: A comprehensive 10 system review of systems is otherwise negative aside from elements mentioned in the history of present illness. MEDICAL/SURGICAL/SOCIAL HISTORY: medical- HTN, CVA, pyelonephritis, hyperlipidemia, MD, GERD, depression, BTKAs , L TSA, lap damien surgical- B knee replacement, cholecystectomy, R shoulder replacement, pacemaker Social history: Never smoked. CONSTITUTIONAL: Nontoxic-appearing elderly female, awake and alert, no obvious distress HEENT: Atraumatic and normocephalic. NECK: supple, mild midline tenderness, flexion 45 degrees, extension 45 degrees , right and left lateral flexion 45 degrees. No meningismus. Cardiovascular: Normal S1/S2, regular rate, regular rhythm, without murmur rub or gallop. PULMONARY/CHEST: Symmetrical and nontender. no crepitus. Clear to auscultation bilaterally. Good air movement. No accessory muscle usage. ABDOMEN: Soft, nondistended, nontender, no ecchymosis. PELVIC: no pain with rocking; bilateral hips flexion 125 degrees, extension 30 degrees, with no pain internal rotation and no pain external rotation. BACK: Moderate lower lumbar midline tenderness, no paraspinous spasm, deep tendon reflexes 2/2, mild pain with straight leg raise, No foot drop. Achilles reflexes are equal bilaterally. EXTREMITIES: 2/2 pulses, strength 5/5, right WRIST: Extension to 70, flexion to 80, radial deviation to 20 degree, ulnar deviation to 30, no scaphoid tenderness, mild tenderness over ulnar styloid, mild tenderness over radial styloid. DIP/PIP/MCP flexion/extension intact with good light touch sensation. no deformities, no clubbing, no cyanosis or edema. NEUROLOGICAL: no focal neuro deficits. GCS 15. Light touch sensation intact. SKIN: Warm and dry, annular hyperpigmented area at the base of the thumb; no erythema. no rash. Good capillary refill. (Mira Connelly) Constitutional: Initial Vital Signs Temperature (C) 36.7 C 03/31/18 19:41 Heart Rate 69 03/31/18 19:41 Respiratory Rate 16 03/31/18 19:41 Blood Pressure 165/104 H 03/31/18 19:41 O2 Sat (%) 92 03/31/18 19:41 O2 Delivery Mode Room Air Allergies/Adverse Reactions: morphine [Morphine] Allergy (Severe, Verified 03/31/18 19:47) Anaphylaxis Home Medications: Medication Instructions Recorded Alendronate Sodium [Fosamax 70 MG 70 mg PO AVENDAÑO@0700 06/27/12 (*)] Citalopram [celeXA 20 MG (RX)] 20 mg PO DAILY 06/27/12 Atorvastatin Calcium [Lipitor 80 80 mg PO HS 02/03/13 mg] Pantoprazole Sodium [Protonix 40mg 40 mg PO DAILY 02/03/13 (*)] Nitroglycerin [Nitrostat] 0.3 mg SL PRN PRN 05/11/13 Acetaminophen [Tylenol ES 500 mg 500 mg PO DAILY PRN 04/01/18 (*)] Aspirin EC [Aspirin EC 81 mg (*)] 81 mg PO DAILY 04/01/18 Cholecalciferol Vit D3 [Vitamin D3 1,000 units PO DAILY 04/01/18 (*)] Ibuprofen [Motrin (*)] 600 mg PO DAILY PRN 04/01/18 Lisinopril/Hctz 20/12.5MG 1 ea PO HS 04/01/18 [Zestoretic/Prinzide 20/12.5MG (*)] Oxybutynin Chloride [Oxybutynin 5 mg PO DAILY 04/01/18 Chloride Er] Medical Decision Making - Diagnostics EKG Interpretation: 12 lead EKG: Indication: Syncope Rhythm: Paced [place]: Normal Intervals: Normal QRS: Normal ST segments: Nonspecific ST changes T segments: Flattened INTERPRETATION: No acute ischemic changes The 12 lead EKG was interpreted by myself and with attending. (Mira Connelly) 12 lead EKG is interpreted in [place] by emergency department physician. (Bree Bradford) Procedures: Procedure: Splint placement. A right Velcro thumb spica splint was applied by the Emergency Room visitor services technician. After application of the splint I returned and re-examined the patient. The splint was adequately immobilizing the joint and distal to the splint the patient's circulation and sensation was intact. (Mira Connelly) ED Course/Re-evaluation: Vital signs reviewed and show elevated blood pressure upon arrival. Placed on color television console monitor. IV access, laboratory studies, chest x-ray, EKG, respiratory pathogen panel, CT head, CT cervical, CT lumbar spine ordered Based on nexus protocol, age greater than 65 years old and on aspirin head CT ordered Based on nexus protocol, cervical midline tenderness, cervical CT scan ordered Due to lumbar midline tenderness lumbar CT scan ordered 2114: EKG my read shows atrial paced rhythm with a rate of 63 beats per minute , nonspecific ST changes 2118: Notified by [employer] that TROP 0.01. Labs reviewed. No signs of leukocytosis/anemia/platelet dysfunction/MOHSEN/elevated LFTs/electrolyte imbalance. 2199: Called by radiologist Dr. Blancas who advised that head CT scan shows stability from 2015 CT exam, atrophy age-related, acute sinusitis. Cervical CT scan shows multilevel degenerative changes. Lumbar spine CT scan shows no fracture multilevel degenerative disc disease similar to 2014. 2205: Chest x-ray my read shows stability when compared to other exam is in no acute opacity. Pacemaker in place. Right wrist x-ray my read shows no acute fracture, dislocation. Placed in Velcro thumb spica splint for comfort. Patient given IV Rocephin and IV Zithromax due to acute sinusitis and possibility for early community-acquired pneumonia. Blood cultures ordered prior to administration of IV antibiotics . 2214: ED decision to consult hospitalist for syncope and collapse, sinusitis, hypertension. Patient's blood pressure remains elevated and she did take blood pressure medications today. I spoke with Dr. Smalls who kindly agrees to admit patient and provide further care. This patient was seen under the supervision of my secondary supervising physician. I evaluated care for this patient with attending. Discussed this patient with Dr. Bradford who did see the patient. (Mira Connelly) The patient was evaluated and managed by the physician assistant auto center manager. I have reviewed this chart and I agree with the findings and plan of care as documented , as indicated by my signature. I am the secondary supervising physician. ( Bree Bradford) Differential Diagnosis: Head injury including but not limited to concussion, skull fracture, intraparenchymal contusion, subarachnoid, subdural and epidural hematoma. (Mira Connelly) - Data Points Laboratory Results: Laboratory Results 03/31/18 20:40 03/31/18 20:40 Medications Given: Acetaminophen (Tylenol) 650 mg PO Q4HRS PRN PRN Reason: Pain, Mild/Fever, Can Take PO Stop: 09/27/18 22:50 Last Admin: 04/01/18 03:44 Dose: 650 mg Enoxaparin Sodium (Lovenox) 40 mg SC DAILY OLIVIA Stop: 09/28/18 08:59 Last Admin: 04/01/18 09:42 Dose: 40 mg Miscellaneous Medication (Icy Hot Lidocaine/Menthol 4%/1% Patch) 1 patch TD DAILY21 OLIVIA Stop: 09/27/18 23:14 Last Admin: 03/31/18 23:57 Dose: 1 patch Discontinued Medications Azithromycin 500 mg/ Sodium (Chloride) 255 mls @ 255 mls/hr IV EDNOW ONE PRN Reason: Protocol Stop: 03/31/18 23:03 Last Admin: 03/31/18 22:50 Dose: 255 mls Ceftriaxone Sodium/Dextrose (Rocephin 1 Gm (Premix)) 50 mls @ 100 mls/hr IV EDNOW ONE PRN Reason: Protocol Stop: 03/31/18 22:33 Last Admin: 03/31/18 22:49 Dose: 50 mls Miscellaneous Medication (Icy Hot Lidocaine/Menthol 4%/1% Patch) 1 patch TD Q24H OLIVIA Stop: 09/27/18 23:14 Last Admin: 04/01/18 00:23 Dose: Not Given Point of Care Test Results: Chemistry 03/31/18 20:47 POC Troponin I 0.01 ng/mL ng/mL (0.00-0.08) Departure - Departure Disposition: [facility] Inpatient Acute Clinical Impression: Syncope and collapse, Lumbar degenerative disc disease Acute sinusitis Qualifiers: Sinusitis location: unspecified location Recurrence: non-recurrent Qualified Code(s): J01.90 - Acute sinusitis, unspecified Cervical spine degeneration Qualifiers: 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
[2018-03-31 20:53] LABS: PLATELET COUNT 176 10^3/uL (150-400)
[2018-03-31] MEDS ORDERED: AZITHROMYCIN IV 500 MG in NS 250 ML IV ONE (22:04)
[2018-03-31] MEDS ORDERED: ACETAMINOPHEN 325 MG TAB PO PRN (22:51)
[2018-03-31] MEDS ORDERED: ONDANSETRON 4 MG/2 ML VIAL IVP PRN (22:51)
[2018-03-31] MEDS ORDERED: ONDANSETRON DISINTEGRATING 4 MG TAB PO PRN (22:51)
[2018-03-31] MEDS ORDERED: IBUPROFEN 600 MG TAB PO PRN (23:11)
[2018-03-31] MEDS ORDERED: LIDOCAINE 4%/MENTHOL 1% PATCH TD SCH ×2 (23:15→23:45)
--- NOTE | 2018-04-01 01:37 | PDGENHP ---
History and Physical - Chief Complaint fall, body aches - History of Present Illness 83yo citizen of the [place] speaking F with history of BPPV, lacunar CVA, SSS s/p pacemaker presents at urging of daughter for evaluation after fall. This fall actually occurred 2 weeks ago. Patient initially resistant to come in but decided to today because of persistent neck and bilateral shoulder pain. Upon further questioning, she reports that this neck and shoulder pain were present prior to the fall but have worsened recently. She has also had pain all down her back and into her buttocks. She has tried tylenol and ibuprofen with some relief. She denies any vision changes but does report jaw pain with chewing. With regards to the fall, she states that she got up out of bed and somehow fell and struck the back of her head. She had no preceding symptoms such as chest pain, palpitations, dyspnea. She had no vertiginous symptoms with this. She did not lose consciousness. No loss of bowel/bladder function. Her daughter reports that she had small hematoma on the back of her head that has now resolved. Lastly, she reports a mild non-productive cough and significant whitish nasal discharge for the last few weeks. No fevers/chills. Work up in the ED including head and C-spine CT were unremarkable except for acute sinusitis. A CXR did not show a pneumonia. She was given a dose of ceftriaxone and azithromycin in the ED. History Information - Allergies/Home Medication List Allergies/Adverse Reactions: morphine [Morphine] Allergy (Severe, Verified 03/31/18 19:47) Anaphylaxis Home Medications: Alendronate Sodium [Fosamax 70 MG (*)] 70 mg PO AVENDAÑO@0700 06/27/12 [Last Taken ] Citalopram [celeXA 20 MG (RX)] 20 mg PO DAILY 06/27/12 [Last Taken 05/09/14 09: 00] Tolterodine Tartrate [Detrol LA 2MG (*)] 2 mg PO DAILY 06/27/12 [Last Taken 09:00] risperiDONE [Risperdal 0.25mg (*)] 0.5 mg PO BID 06/27/12 [Last Taken 05/09/14 09:00] Atorvastatin Calcium [Lipitor 80 mg] 80 mg PO DAILY 02/03/13 [Last Taken 09:00] Lidocaine 5% [Lidoderm 5% Patch] 1 ea TD DAILY 02/03/13 [Last Taken 05/09/14 09: 00] Metoprolol Succinate Xr [Toprol Xl 25 mg (*)] 12.5 mg PO BID 02/03/13 [Last Taken 05/09/14 09:00] Ondansetron Odt [Zofran Odt 4 mg (*)] 4 mg PO Q8 PRN 02/03/13 [Last Taken ] Pantoprazole Sodium [Protonix 40mg (*)] 40 mg PO DAILY 02/03/13 [Last Taken 09:00] Loratadine [Claritin 10 mg] 10 mg PO DAILY 05/11/13 [Last Taken 05/09/14 09:00] Metaxalone [Skelaxin 800 mg (*)] 800 mg PO TID PRN 05/11/13 [Last Taken Unknown] Nitroglycerin [Nitrostat] 0.3 mg SL PRN PRN 05/11/13 [Last Taken Unknown] Hydrocodone/APAP 5/325 [[place] 5/325 (*)] 1 - 2 tab PO Q6 PRN 05/09/14 [Last Taken Unknown] I have personally reviewed and updated: family history, medical history, social history, surgical history - Past Medical History Additional medical history: BPPV, left lacunar CVA, SSS s/p pacemaker, HLD, HTN , ? meningioma, GERD, osteoporosis, depression/anxiety, osteoarthritis, moderate aortic regurgitation - Surgical History Additional surgical history: bilateral TKA - Family History Positive for: non-pertinent - Social History Smoking Status: Never smoked Alcohol Use: None Drug Use: None Additional social history: Lives with daughter Review of Systems Review of Systems: ROS: 10pt was reviewed & negative except for what was stated in HPI & below Physical Exam Physical Exam: Temp Pulse Resp BP Pulse Ox 36.8 C 67 18 157/75 H 94 03/31/18 23:30 03/31/18 23:30 03/31/18 23:30 03/31/18 23:30 03/31/18 23:30 Constitutional: appears nourished, uncomfortable Eyes: PERRL, anicteric sclera, EOMI, other (no vertigo) Ears, Nose, Mouth, Throat: moist mucous membranes, hearing normal, ears appear normal, no oral mucosal ulcers Cardiovascular: regular rate and rhythym, no murmur, rub, or gallop, No edema Respiratory: no respiratory distress, no rales or rhonchi, clear to auscultation Gastrointestinal: normoactive bowel sounds, soft, non-tender abdomen, no palpable masses Genitourinary: no bladder fullness, no bladder tenderness Skin: warm, normal color, no rashes or abrasions, no fluctuance, no induration, No mottled Musculoskeletal: full muscle strength, other (tenderness along all of spine) Neurologic: AAOx3 Psychiatric: interacting appropriately Lab Data & Imaging Review 03/31/18 20:40 03/31/18 20:40 WBC 6.11 10^3/uL (3.80-9.50) 03/31/18 20:40 RBC 4.74 10^6/uL (4.18-5.33) 03/31/18 20:40 Hgb 14.6 g/dL (12.6-16.3) 03/31/18 20:40 Hct 43.2 % (38.0-47.0) 03/31/18 20:40 MCV 91.1 fL (81.5-99.8) 03/31/18 20:40 MCH 30.8 pg (27.9-34.1) 03/31/18 20:40 MCHC 33.8 g/dL (32.4-36.7) 03/31/18 20:40 RDW 13.4 % (11.5-15.2) 03/31/18 20:40 Plt Count 176 10^3/uL (150-400) 03/31/18 20:40 MPV 12.0 fL (8.7-11.7) H 03/31/18 20:40 Neut % (Auto) 45.5 % (39.3-74.2) 03/31/18 20:40 Lymph % (Auto) 36.0 % (15.0-45.0) 03/31/18 20:40 [place] % (Auto) 9.2 % (4.5-13.0) 03/31/18 20:40 Eos % (Auto) 8.0 % (0.6-7.6) H 03/31/18 20:40 Baso % (Auto) 1.1 % (0.3-1.7) 03/31/18 20:40 Nucleat RBC Rel Count 0.0 % (0.0-0.2) 03/31/18 20:40 Absolute Neuts (auto) 2.78 10^3/uL (1.70-6.50) 03/31/18 20:40 Absolute Lymphs (auto) 2.20 10^3/uL (1.00-3.00) 03/31/18 20:40 Absolute Monos (auto) 0.56 10^3/uL (0.30-0.80) 03/31/18 20:40 Absolute Eos (auto) 0.49 10^3/uL (0.03-0.40) H 03/31/18 20:40 Absolute Basos (auto) 0.07 10^3/uL (0.02-0.10) 03/31/18 20:40 Absolute Nucleated RBC 0.00 10^3/uL (0-0.01) 03/31/18 20:40 Immature Gran % 0.2 % (0.0-1.1) 03/31/18 20:40 Immature Gran # 0.01 10^3/uL (0.00-0.10) 03/31/18 20:40 ESR 20 MM/HR (0-30) 03/31/18 20:40 Sodium 140 mEq/L (135-145) 03/31/18 20:40 Potassium 3.7 mEq/L (3.5-5.2) 03/31/18 20:40 Chloride 108 mEq/L (97-110) 03/31/18 20:40 Carbon Dioxide 29 mEq/l (22-31) 03/31/18 20:40 Anion Gap 3 mEq/L (6-14) L 03/31/18 20:40 BUN 13 mg/dL (7-23) 03/31/18 20:40 Creatinine 0.6 mg/dL (0.6-1.0) 03/31/18 20:40 Estimated GFR > 60 03/31/18 20:40 Glucose 93 mg/dL (70-100) 03/31/18 20:40 Calcium 9.2 mg/dL (8.5-10.4) 03/31/18 20:40 Total Bilirubin 0.3 mg/dL (0.1-1.4) 03/31/18 20:40 Conjugated Bilirubin 0.3 mg/dL (0.0-0.5) 03/31/18 20:40 Unconjugated Bilirubin 0.0 mg/dL (0.0-1.1) 03/31/18 20:40 AST 29 IU/L (14-46) 03/31/18 20:40 ALT 32 IU/L (9-52) 03/31/18 20:40 Alkaline Phosphatase 103 IU/L (38-126) 03/31/18 20:40 POC Troponin I 0.01 ng/mL (0.00-0.08) 03/31/18 20:47 C-Reactive Protein 8.6 mg/L (<10.0) 03/31/18 20:40 Total Protein 6.6 g/dL (6.3-8.2) 03/31/18 20:40 Albumin 3.4 g/dL (3.5-5.0) L 03/31/18 20:40 Visualized and Interpreted Chest x-ray results: Yes Visualized and Interpreted imaging results: Yes Interpretation: CXR: no infiltrate or effusion, dual lead pacemaker in place Visualized and Interpreted EKG results: Yes EKG additional interpertation: ECG: a-paced rhythm, old inferior q waves, no acute ischemia Assessment & Plan Assessment: 83yo citizen of the [place] speaking F with history of BPPV, lacunar CVA, SSS s/p pacemaker presents for evaluation of neck and back pain after fall. Plan: 1. Fall: Occurred 2 weeks ago. Positive orthostatics here and suspect this as etiology vs flare of vertigo. She does carry a history of aortic regurg that hasn't been evaluated since 12/2016. Imaging negative for fracture/trauma. - Gentle hydration - TTE, telemetry - Pacemaker interrogation in AM - PT/OT 2. Diffuse myalgias/arthralgias: Acute on chronic, seemingly worsened by fall. Likely OA but PMR or giant cell arteritis a possibility. - Check ESR, CRP. If significantly elevated, consider steroids - Tylenol, ibuprofen, lidocaine patch 3. Acute sinusitis: Likely viral. - Symptomatic mgmt, hold on additional antibiotics 4. HTN: Home meds once reconciliation complete. 5. H/o CVA: On aspirin, statin. 6. Depression, anxiety: Home meds once reconciliation complete. 7. Valvular heart disease: Normal LVEF. Compensated on exam. VTE ppx: LMWH Code: full Diet: regular Dispo: Admit under observation
[2018-04-01] MEDS ORDERED: NS 1,000 ML IV SCH (02:30)
[2018-04-01] MEDS ORDERED: ENOXAPARIN 40 MG/0.4 ML SYR SC SCH (09:00)
[2018-04-01] MEDS ORDERED: PATCH REMOVAL 1 EA PATCH TD SCH (11:00)
[2018-04-01 13:14] LABS: CREATINE KINASE 56 IU/L (0-156)
--- NOTE | 2018-04-01 14:30 | ASMTCMCOM ---
CM Note CM Note Notes: Pt is a 83 y/o man admitted for a fall and body aches. Pt is dive[place] speaking only. OT worked w/ pt and cleared him to d/c without any needs. PT has been ordered and pending. Needs are TBD at this time. CM to follow. Plan: TBD Date Signed: 04/01/2018 02:29 PM Electronically Signed By:THU Galindo
[2018-04-01 15:20] VITALS: BP 136/70
[2018-04-01] MEDS: CAPSAICIN 0.025% CREAM TP SCH (17:24)
--- NOTE | 2018-04-01 17:43 | ECHO ---
[email or web address] [address] [address] Main: [phone] Fax: Transthoracic Echocardiogram Name: ANISH TRUJILLO MR#: [id number] Study Date: 04/01/2018 Study Time: 10:16 AM Date of : 1935 Age: 83 year(s) Height: 152.4 cm (60 in.) Weight: 68.04 kg (150 lb.) BSA: 1.65 m2 Gender: Female Examination: Echo Indication: eval valvular heart disease progression Image Quality: Adequate Contrast: Requested by: Gatito Smalls BP: 164 mmHg/87 mmHg Heart Rate: Rhythm: Indication: eval valvular heart disease progression Procedure Staff Production Truck Driver: Khadra Varghese [facility] Reading Physician: Ludin Green MD Requesting Provider: Conclusions: Normal size left ventricle. Mild concentric LV hypertrophy. Normal global systolic LV function. EF is 68 %. No regional wall motion abnormality. Diastolic dysfunction is indeterminate. Normal size right ventricle. Normal RV function. There is a pacemaker lead noted in the right ventricle. The left atrium is normal in size. The right atrium is normal in size. The mitral valve is normal in appearance. Trivial mitral valve regurgitation. No mitral stenosis is present. The aortic valve is tri-leaflet. Minimal aortic cusp calcification is noted. Moderate aortic valve regurgitation is present. No aortic valve stenosis is present. The tricuspid valve appears normal. Mild to moderate tricuspid valve regurgitation. Right ventricular systolic pressure measures 26mmHg. The pulmonary artery pressure is normal. Pulmonary valve not well visualized. There is no pulmonic regurgitation seen. Normal size aortic root measuring 2.9 cm. Normal size and course of the IVC. No pericardial effusion. Compared to a prior echocardiogram dated 01/02/2017 the aortic insufficiency has increased from mild moderate to moderate.. the pulmonary pressure on today's examination is measured to be lower and is down from 42 to 26 mmHg. Patient: ANISH TRUJILLO Study Date: 04/01/2018 Page 1 of 3 10:16 AM Measurements: Chambers Valvular Assessment AV/MV Valvular Assessment TV/PV Normal Normal Normal Name Value Range Name Value Range Name Value Range Ao Kristina (MM): 2.9 cm (2.2 cm-3.7 AV Vmax: 1.06 m/s (1 m/s-1.7 TR Vmax: 2.31 mm/s ( - ) cm) m/s) TR PGmax: 21 mmHg ( - ) IVSd (2D): 1.3 cm (0.6 cm-1.1 AV maxP mmHg ( - ) syst. PAP: 26 mmHg ( - ) cm) LVOT Vmax: 0.79 m/s (0.7 m/s-1.1 PV Vmax: 0.78 m/s (0.6 m/s-0.9 LVDd (2D): 3.6 cm (3.9 cm-5.3 m/s) m/s) cm) PATSY (Vmax): 2.3 cm2 ( - ) PV PGmax: 2 mmHg ( - ) LVDs (2D): 2.4 cm (2.1 cm-4 AR (PHT): 432 ms ( - ) cm) MV E Vmax: 0.42 m/s ( - ) LVPWd (2D): 1.0 cm ( - ) MV A Vmax: 0.94 m/s ( - ) LVOTd 2.0 cm 2.0 cm mm MV E/A: 0.45 ( - ) LVEF (BP): 68 % (>=55 %) RVDd(2D): 2.8 cm (1.9 cm-3.8 cmmm) Continued Measurements: Chambers Valvular Assessment AV/MV Valvular Assessment TV/PV Name Value Name Value Name Value LADs: 3.1 cm MV DecTime: 113 m/s CVP (est.): 5 mmHg LADs Lon.5 cm MV E' Septal: 0.04 m/s LA Area: 11.4 cm2 MV E/E' Septal: 9.90 LA Volume: 27 ml MV E/E' Lateral: 11.80 LA Volume Index: 16.4 ml/m2 AR Vmax: 4.85 cm/s RA Area: 11.0 cm2 Additional Vessels Name Value Ao Ascendin.1 cm Findings: Left Ventricle: Normal size left ventricle. Mild concentric LV hypertrophy. Normal global systolic LV function. EF is 68 %. No regional wall motion abnormality. Diastolic dysfunction is indeterminate. Right Ventricle: Normal size right ventricle. Normal RV function. There is a pacemaker lead noted in the right ventricle. Left Atrium: The left atrium is normal in size. Right Atrium: The right atrium is normal in size. Mitral Valve: The mitral valve is normal in appearance. Trivial mitral valve regurgitation. No mitral stenosis is present. Aortic Valve: The aortic valve is tri-leaflet. Minimal aortic cusp calcification is noted. Moderate aortic valve regurgitation is present. No aortic valve stenosis is present. Tricuspid Valve: The tricuspid valve appears normal. Mild to moderate tricuspid valve regurgitation. Right ventricular systolic pressure measures 26mmHg. The pulmonary artery pressure is normal. Pulmonic Valve: Pulmonary valve not well visualized. There is no pulmonic regurgitation seen. Aorta: Normal size aortic root measuring 2.9 cm. Normal size ascending aorta measuring 3.1 cm. IVC: Patient: ANISH TRUJILLO Study Date: 04/01/2018 Page 2 of 3 10:16 AM Normal size and course of the IVC. Pericardium: No pericardial effusion. (No Signature Object) Patient: ANISH TRUJILLO Study Date: 04/01/2018 Page 3 of 3 10:16 AM [id number]
--- NOTE | 2018-04-01 17:55 | GDS ---
DISCHARGE DIAGNOSIS: Mechanical fall. HISTORY OF PRESENT ILLNESS: This is a pleasant 83-year-old female who lives independently with her jaimie sanchez and has a history of sick sinus syndrome, status post pacemaker placement, presented after nguyen ving a fall approximately 2 weeks ago. She had stated that she had got up out of bed and then fell a nd hit the back of her head. She did not have any syncopal episode or loss of consciousness and she states that she recalls the fall. She did not have any vertigo as well. She was having some ongoing muscle pain after the fall and at her daughter's insistence, she came to the emergency room for furt her evaluation. She had a CT scan of her head, cervical spine and lumbar spine, which did not show a ny acute changes. Furthermore, she had a chest x-ray and wrist x-ray, which did not show any fractur es. An echocardiogram was ordered as she does have a history of mild aortic regurgitation which was documented in 2012. The results of the echocardiogram are currently pending and I have obtained her daughter's contact information so I can call her with the report once resulted. Overall, her workup was reassuring. It was felt she was stable for discharge back to home. We did discuss establishing with Physical Therapy to work with balance and gait training. Fall: No concerning findings on workup here in the hospital. She does not present with a significant recurrent falling history, but I do think she may benefit from physical therapy. A prescription was provided to her. Myalgias, probably related to the fall itself. A sedimentation rate and CRP was obtained to look for the possibility of polymyalgia rheumatica. These blood tests were both normal. Sinusitis, noted on CT imaging. Likely viral. Supportive measures for now. History of CVA, patient was continued on aspirin, statin therapy. Aortic regurgitation, this was mild on 2012 echocardiogram. An echocardiogram was obtained today. R esults of which are currently pending. She has no significant murmur on exam. Sick sinus syndrome-patient is status post pacemaker placement. Has followup with [facility]. Hypertension-no changes were made during this hospitalization. Hyperlipidemia-patient on atorvastatin. Depression and anxiety-no changes made during this hospitalization. EXAM: On day of discharge, VITAL SIGNS: Temperature 36.6, blood pressure 165/97, heart rate 67, res pirations 16, satting 95% on room air. GENERAL: The patient appears comfortable, she is awake, alert , conversant, no acute distress. HEART: Regular rate and rhythm. No murmurs appreciated. LUNGS: Clear to auscultation with normal respiratory effort. ABDOMEN: Soft, nontender. no William cathet er in place. EXTREMITIES: No significant edema. NOTABLE STUDIES: Imaging: As detailed in the HPI. White blood cell count 6, hemoglobin 14, platelet s 176. Sodium 140, potassium 3.7, chloride 108, bicarb 29, BUN 13, creatinine 0.6, glucose 93. Live r function tests within normal limits. C-reactive protein 8.6, sedimentation rate 20, troponin 0.01. DISCHARGE MEDICATIONS: In short, no medication changes were made during this hospitalization. Aspir in 81 mg daily. Atorvastatin 80 mg nightly. Vitamin D supplementation. Celexa 20 mg daily. Lisino pril hydrochlorothiazide 20/12.5 mg daily, Ditropan 5 mg daily, pantoprazole 40 mg daily, Fosamax 70 mg weekly. DISCHARGE INSTRUCTIONS: I recommend a followup visit with her primary doctor in 1-2 weeks' time for reassessment. I also recommend establishing with Physical therapy for balance and gait training. /[id number]/MODL
--- NOTE | 2018-04-02 23:16 | CPEKG ---
Test Reason : OPEN Blood Pressure : / mmHG Vent. Rate : 063 BPM Atrial Rate : 063 BPM P-R Int : 174 ms QRS Dur : 103 ms QT Int : 434 ms P-R-T Axes : -42 033 051 degrees QTc Int : 445 ms Atrial-paced rhythm Inferior infarct, old Confirmed by Nata Heredia ([id number]) on 04/02/2018 11:16:49 PM Referred By: Confirmed By:Nata Heredia
== END 2018-04-01 17:59 | disposition home or self-care (01) ==
LOC: F3E 23:39
PROVIDERS: ADMIT Internal Medicine; ATTEND Internal Medicine
DX: R55 Syncope and collapse (principal); S63.501A Unspecified sprain of right wrist, initial encounter; I10 Essential (primary) hypertension; M47.812 Spondylosis without myelopathy or radiculopathy, cervical region; Z95.0 Presence of cardiac pacemaker; W19.XXXA Unspecified fall, initial encounter
CPT/HCPCS: 70450; 71046; 72125; 72131; 73110; 93005; 93306; 97165; G0378; J0456; J0696; J1650; L3807; 84484-ER; 96365